=== PATIENT | female | born 1980 | race Caucasian/White ===

== ENCOUNTER 2021-05-13 09:30 | Emergency (ER) | payer BC ==
[2021-05-13 09:44] VITALS: BP 117/47; PULSE 73; TEMP 98.2; BMI 35.5
[2021-05-13] MEDS ORDERED: ONDANSETRON *ODT* 4 MG TABLET ONE (09:56)
[2021-05-13] MEDS ORDERED: ONDANSETRON *ODT* 4 MG TABLET SL ONE (10:15)
[2021-05-13] MEDS ORDERED: ALBUTEROL SO4 HFA INHALER IH ONE ×2 (10:15→10:18)
[2021-05-13 11:15] LABS: BASO % 1.9 % (0-2.0); EOS % 7.8 % (0-4.5); HCG,QUALITATIVE URINE Negative; HEMATOCRIT 41.3 % (32.4-45.2); HEMOGLOBIN 13.3 GM/dl (10.7-15.3); LYMPH % 32.7 % (8-40); MCH 29.3 pg (25.7-33.7); MCHC 32.2 g/dl (32.0-36.0); MEAN PLT VOLUME 10.2 fl (7.5-11.1); MONO % 6.3 % (3.8-10.2); NEUT % 51.3 % (42.8-82.8); PLATELET COUNT 210 10^3/uL (134-434); RBC 4.54 M/mm3 (3.60-5.2); RDW 12.7 % (11.6-15.6); WHITE BLOOD COUNT 7.4 K/mm3 (4.0-10.8)
[2021-05-13] MEDS ORDERED: TRIAMCINOLONE ACET 0.025% CREAM 15 GM TUBE TP SCH (11:15)
[2021-05-13] MEDS ORDERED: NYSTATIN 100,000 UNIT/GM TOPICAL CREAM 15 GM TUBE TP SCH (11:15)
[2021-05-13 11:26] LABS: ALBUMIN 3.6 g/dl (3.4-5.0); BILIRUBIN,TOTAL 0.6 mg/dl (0.2-1); CALCIUM 8.4 mg/dl (8.5-10); CREATININE 0.9 mg/dl (0.55-1.3); TOT PROT 6.3 g/dl (6.4-8.2)
== END 2021-05-13 14:51 | disposition home or self-care (01) ==
LOC: FER 09:30
DX: R06.02 Shortness of breath (principal); J45.909 Unspecified asthma, uncomplicated; L30.9 Dermatitis, unspecified; Z11.52 Encounter for screening for COVID-19
CPT/HCPCS: 36415; 80053; 81003; 84703; 85025; 99283-25; C9803; Q0162; U0003; U0005